=== PATIENT | female | born 1950 | race Caucasian/White ===

== ENCOUNTER 2018-04-13 08:24 | Day surgery (SDC) | payer OTHER ==
[~2018-04-13 08:24] MED LIST: CEFAZOLIN 1 GM INJ
[2018-04-13] MEDS ORDERED: MIDAZOLAM 1 MG/ML 2 ML INJ (08:44)
[2018-04-13] MEDS ORDERED: FENTAnyl 50 MCG/ML VIAL (08:44)
[2018-04-13] MEDS ORDERED: LIDOCAINE 2% (SDV) 5 ML INJ (08:44)
[2018-04-13] MEDS ORDERED: DEXAMETHASONE 4 MG/ML 1 ML INJ (08:44)
[2018-04-13] MEDS ORDERED: GLYCOPYRROLATE 0.4 MG INJ (08:44)
[2018-04-13] MEDS ORDERED: NEOSTIGMINE 3 MG/3 ML SYRINGE (08:44)
[2018-04-13] MEDS ORDERED: ROCURONIUM 50 MG INJ (08:44)
[2018-04-13] MEDS ORDERED: PROPOFOL 20 ML (08:44)
[2018-04-13] MEDS ORDERED: ONDANSETRON 4 MG INJ (08:45)
[2018-04-13] MEDS ORDERED: ROPIVACAINE 0.5 % 30 ML VIAL ×2 (08:45→15:42)
[2018-04-13] MEDS: LACTATED RINGER'S 1,000 ML IV (09:54)
[2018-04-13] MEDS ORDERED: METHYLENE BLUE 1% 10 ML INJ (12:08)
[2018-04-13] MEDS: POLYMYXIN/BACITRACIN 1L IRRIG (15:02)
[2018-04-13] MEDS: POVIDONE IODINE 10% 28.4 GM OINT (15:33)
[2018-04-13] MEDS: ROPIVACAINE 0.5 % 30 ML VIAL (15:45)
[2018-04-13] MEDS ORDERED: SOD CHLORIDE 0.9% 1,000 ML IV (15:54)
[2018-04-13] MEDS ORDERED: OXYCODONE/ACETAMINOPHEN (5/325) TAB PO ×2 (16:00)
[2018-04-13] MEDS ORDERED: ONDANSETRON 4 MG INJ IV ×2 (16:00→16:30)
[2018-04-13] MEDS ORDERED: morphine 2 MG INJ IV (16:00)
[2018-04-13] MEDS ORDERED: LABETALOL HCL 20MG INJ (16:01)
[2018-04-13] MEDS: LABETALOL HCL 20MG INJ IV (16:01)
[2018-04-13] MEDS ORDERED: HYDROmorphONE 1 MG/5 ML IV SYRINGE IV ×3 (16:30)
[2018-04-13] MEDS ORDERED: MEPERIDINE 25 MG INJ IV (16:30)
== END 2018-04-13 17:33 | disposition home or self-care (01) ==
LOC: SDS 08:24
DX: M20.11 Hallux valgus (acquired), right foot (principal); M21.611 Bunion of right foot; Q66.89 Other specified congenital deformities of feet; E78.5 Hyperlipidemia, unspecified; Z87.891 Personal history of nicotine dependence
CPT/HCPCS: 28270; 73630